=== PATIENT | female | born 1960 | race Caucasian/White ===

== ENCOUNTER 2017-02-18 07:02 | Day surgery (SDC) | payer BC ==
--- NOTE | 2017-02-16 12:21 | CR ---
Chest: PA view of the chest was obtained. Comparison: No prior chest x-ray. Heart size and mediastinum are normal. Lungs are clear. Bony structures are grossly intact. Minimal scoliosis is incidentally noted. Impression: 1. Nothing acute is identified on frontal chest x-ray. Diagnostic code #2
[~2017-02-18 07:02] MED LIST: Lactated Ringers 1,000 ML IV SCH; Lidocaine 1%/Sod Bicarbonate in NS 8.4% 1 ML Syringe IV PRN; Sodium Chloride 0.9% 10 ML Syringe FLUSH PRN
[2017-02-18] MEDS ORDERED: fentaNYL 250 MCG/5 ML SDV ONE (07:18)
[2017-02-18] MEDS ORDERED: Midazolam 1 MG/ML 2 ML SDV ONE (07:18)
[2017-02-18] MEDS ORDERED: Propofol 200 MG/20 ML SDV ONE ×3 (07:18→08:17)
[2017-02-18] MEDS ORDERED: Lidocaine 1% 4 ML ONE (07:19)
[2017-02-18] MEDS ORDERED: Dexamethasone 4 MG/ML SDV ONE (07:19)
[2017-02-18] MEDS ORDERED: Ondansetron 4 MG/2 ML SDV ONE (07:19)
[2017-02-18] MEDS ORDERED: Ketorolac 30 MG/ML SDV ONE (07:19)
[2017-02-18] MEDS ORDERED: Scopolamine 1 MG Transdermal Patch TRDERM ONE (07:35)
--- NOTE | 2017-02-18 07:35 | PCM.PREANE ---
Preanesthetic Assessment - Procedure Proposed Procedure: D&C hysteroscopy - Anesthesia/Transfusion/Family Hx Anesthesia History: Prior Anesthesia Without Reaction Type of Anesthesia Reaction: Excessive Nausea/Vomiting Family History of Anesthesia Reaction: No Transfusion History: No Prior Transfusion(s) - Review of Systems General: No Symptoms Pulmonary: No Symptoms Cardiovascular: Other (HTN ) Gastrointestinal: Other (OCC GERD depnending on diet ) Neurological: No Symptoms Other: Reports: Depression, Anxiety - Physical Assessment NPO Status Date: 02/17/17 NPO Status Time: 18:00 O2 Sat by Pulse Oximetry: 98 Respiratory Rate: 16 Vital Signs: Last Vital Signs Temp 37.0 C 02/18/17 07:10 Pulse 71 02/18/17 07:10 Resp 16 02/18/17 07:10 BP 122/65 02/18/17 07:10 Pulse Ox 98 02/18/17 07:10 Height: 1.75 m Weight: 82.1 kg ASA Class: 2 Mental Status: Alert & Oriented x3 Airway Class: Mallampati = 2 Dentition: Reports: Normal Dentition Thyro-Mental Finger Breadths: 3 Mouth Opening Finger Breadths: 3 ROM/Head Extension: Full Lungs: Clear to Auscultation, Normal Respiratory Effort Cardiovascular: Regular Rate, Regular Rhythm - Lab Values: Laboratory Last Values HCG, Quant < 1.0 mIU/mL 02/16/17 10:51 - Allergies Allergies/Adverse Reactions: Allergies Allergy/AdvReac Type Severity Reaction Status Date / Time No Known Allergies Allergy Verified 02/17/17 15:09 - Blood Blood Available: No Product(s) Available: None - Anesthesia Plan Pre-Op Medication Ordered: None - Acknowledgements Anesthesia Type Planned: General Anesthesia (LMA) Pt an Appropriate Candidate for the Planned Anesthesia: Yes Alternatives and Risks of Anesthesia Discussed w Pt/Guardian: Yes Pt/Guardian Understands and Agrees with Anesthesia Plan: Yes PreAnesthesia Questionnaire HEENT History: Reports: Other (See Below) Other HEENT History: post nasal drip Respiratory History: Reports: Other (See Below) Other Respiratory History: chronic cough Gastrointestinal History: Reports: GERD 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) Other OB/BYN History: cervical polyp, pelvic pain Musculoskeletal History: Reports: None Neurological History: Reports: None Psychiatric History: Reports: Anxiety Endocrine/Metabolic History: Reports: None Hematologic History: Reports: None Immunologic History: Reports: None Oncologic (Cancer) History: Reports: None Dermatologic History: Reports: None - Past Surgical History Head Surgeries/Procedures: Reports: None Cardiovascular Surgical History: Reports: Varicose, Other (See Below) Other Cardiovascular Surgeries/Procedures: varicose vein ligation Respiratory Surgical History: Reports: None GI Surgical History: Reports: Colonoscopy Female Surgical History: Reports: Breast Implant, Section Male Surgical History: Reports: None Endocrine Surgical History: Reports: None Neurological Surgical History: Reports: None Musculoskeletal Surgical History: Reports: None Dermatological Surgical History: Reports: None - SUBSTANCE USE Smoking Status *Q: Former Smoker Second Hand Smoke Exposure: No Days Per Week of Alcohol Use: 0 Number of Drinks Per Day: 0 Total Drinks Per Week: 0 Recreational Drug Use History: No - HOME MEDS Home Medications: Home Meds Escitalopram [Lexapro] 10 mg PO DAILY 02/17/17 [History] Metoprolol Succinate 25 mg PO DAILY 02/17/17 [History] Zolpidem [Ambien] 10 - 20 mg PO BEDTIME PRN 02/17/17 [History] - CURRENT (IN HOUSE) MEDS Current Meds: Current Medications Lactated Ringer's (Ringers, Lactated) 1,000 mls @ 125 mls/hr IV ASDIRECTED KARIS Lidocaine/Sodium Bicarbonate (Buffered Lidocaine 1% In Ns 8.4%) 0.25 ml IV ONETIME PRN PRN Reason: Prior to IV Start Sodium Chloride (Saline Flush) 10 ml FLUSH ASDIRECTED PRN PRN Reason: Keep Vein Open Discontinued Medications Dexamethasone (Dexamethasone) Confirm Administered Dose 4 mg .ROUTE .STK-MED ONE Stop: 02/18/17 07:20 Fentanyl (Sublimaze) Confirm Administered Dose 250 mcg .ROUTE .STK-MED ONE Stop: 02/18/17 07:19 Lidocaine HCl (Xylocaine-Mpf 1%) Confirm Administered Dose 4 mls @ as directed .ROUTE .STK-MED ONE Stop: 02/18/17 07:20 Ketorolac Tromethamine (Toradol) Confirm Administered Dose 30 mg .ROUTE .STK- MED ONE Stop: 02/18/17 07:20 Midazolam HCl (Versed 1 Mg/Ml) Confirm Administered Dose 2 mg .ROUTE .STK-MED ONE Stop: 02/18/17 07:19 Ondansetron HCl (Zofran) Confirm Administered Dose 4 mg .ROUTE .STK-MED ONE Stop: 02/18/17 07:20 Propofol (Diprivan 20 Ml) Confirm Administered Dose 200 mg .ROUTE .STK-MED ONE Stop: 02/18/17 07:19
[2017-02-18] MEDS ORDERED: ceFAZolin 1 GM Vial ONE (07:46)
--- NOTE | 2017-02-18 08:29 | PCM.OPNOTE ---
- General Post-Op/Procedure Note Date of Surgery/Procedure: 02/18/17 Operative Procedure(s): Hysteroscopy dilatation and curettage polypectomy 77647 Pre Op Diagnosis: Endocervical polyp, pelvic pain female, abnormal ultrasound of the endometrium with thickened endometrium 7.2 mm greater than 50 years of age Post-Op Diagnosis: Same the endometrium was not thickened visually it was atrophic endometrium. Anesthesia Technique: General LMA Primary Surgeon: Paco Guadalupe Anesthesia Provider: Irwin Partida Fluid Replacement, Intraop: 1,000 Output, Urine Amount: 10 EBL in mLs: 5 Drain/Tube Comments:: None Complications: None Condition: Good Free Text/Narrative:: Patient was transported to operating room #3 and placed under general anesthesia with laryngeal mask in the dorsal lithotomy position and prepared and draped in a sterile fashion after examination under anesthesia revealed a retroflexed uterus normal size no adnexal masses. SCDs in place and functioning. Patient received 2 g of Ancef preop. Timeout was performed confirming name date of and procedure as D&C polypectomy and hysteroscopy. The polyp was grasped and removed with tonsil snare without difficulty sent separately to pathology. The uterus sounded to 8 cm and carefully dilated to #14 Indonesian to accommodate the hysteroscope. Hysteroscopy was performed no endometrial polyps were seen in the endometrial cavity appeared to be atrophic consistent with her age. Endometrial curetting performed scant tissue obtained all tissue sent to pathology for tissue evaluation. Recent examination of the endometrial cavity with the hysteroscope after curettage showed no polyps again and no active bleeding. Patient was transported postanesthesia care unit in satisfactory condition. Given 1 dose of Toradol 30 mg IV. One set of pictures taken with 6 images: Image 001 the right cornua of the uterus with tubal ostia Image 002 left tubal ostia Image 003 fundus of the endometrial cavity with atrophic endometrium visible Image 004 post curettage right tubal ostia and cornua Image 005 shows the left cornua and area of tubal ostia. Images 006 shows the endometrial cavity with the fundus visible and no active bleeding no polyps seen on any evaluation with the hysteroscope inside the endometrial cavity. Patient has appointment for follow-up in the clinic in 2 weeks' Tylenol and Motrin for pain every 6 hours alternating every 3 hours with Motrin or Tylenol. Pelvic rest for 6 weeks.
--- NOTE | 2017-02-18 08:33 | PCM.POSTAN ---
POST ANESTHESIA ASSESSMENT - MENTAL STATUS Mental Status: Alert, Oriented - VITAL SIGNS Pulse Rate: 60 SaO2: 96 Resp Rate: 11 Blood Pressure: 80/45 Temperature: 36.6 C - RESPIRATORY Respiratory Status: Respiratory Rate WNL, Airway Patent, O2 Saturation Stable, Supplemental Oxygen - CARDIOVASCULAR CV Status: Pulse Rate WNL, Blood Pressure Stable - GASTROINTESTINAL GI Status: No Symptoms - PAIN Pain Score: 0 - POST OP HYDRATION Hydration Status: Adequate & Stable
[2017-02-18] MEDS ORDERED: fentaNYL 100 MCG/2 ML SDV IVPUSH PRN (08:36)
[2017-02-18] MEDS ORDERED: Ondansetron 4 MG/2 ML SDV IVPUSH PRN (08:36)
[2017-02-18] MEDS ORDERED: HYDROmorphone 0.5 MG/0.5 ML Syringe IVPUSH PRN (08:36)
[2017-02-18] MEDS ORDERED: Meperidine PF 50 MG/ML Syringe IVPUSH PRN (08:36)
[2017-02-18] MEDS ORDERED: diphenhydrAMINE 50 MG/ML SDV IVPUSH PRN (08:36)
--- NOTE | 2017-02-18 11:08 | PCM48HPAN ---
Post Anesthesia Note - EVALUATION WITHIN 48HRS OF ANESTHETIC Vital Signs in Normal Range: Yes Patient Participated in Evaluation: No (Pt D/C home, doing well per RN.) Respiratory Function Stable: Yes Airway Patent: Yes Cardiovascular Function Stable: Yes Hydration Status Stable: Yes Pain Control Satisfactory: Yes Nausea and Vomiting Control Satisfactory: Yes Mental Status Recovered: Yes
[2017-02-18 11:20] VITALS: BP 114/68
== END 2017-02-18 09:55 | disposition home or self-care (01) ==
LOC: JD.SDS 07:02
PROVIDERS: ATTEND Obstetrics & Gynecology
DX: N84.1 Polyp of cervix uteri (principal); I10 Essential (primary) hypertension; K21.9 Gastro-esophageal reflux disease without esophagitis; F41.9 Anxiety disorder, unspecified; Z79.899 Other long term (current) drug therapy
CPT/HCPCS: 36415; 58558; 71045; 84702; A9270; J0690; J1100; J1885; J2250; J2405; J3010; J7120; 00952; J2704

== ENCOUNTER 2018-03-29 19:42 | Emergency (ER) | payer BC ==
[2018-03-29 19:58] VITALS: BP 138/76
--- NOTE | 2018-03-29 20:16 | EDM.PDOC ---
ED HPI GENERAL MEDICAL PROBLEM - General Chief Complaint: Respiratory Problem Stated Complaint: COUGH VOMITING Time Seen by Provider: 03/29/18 20:14 Source of Information: Reports: Patient - History of Present Illness INITIAL COMMENTS - FREE TEXT/NARRATIVE: Patient returns to the emergency department today for evaluation of cough for approximately one month. She states that February 24, 2018 she was prescribed Zithromax and prednisone and cough syrup by her PCP. She states that this took care of her cough for approximately one week. She states that it then returned. Patient states that she thought symptoms were improving, today she is coughing harder and reports a very thin, white sputum. She states that it feels like fluid pouring out from her lungs". She does have an albuterol inhaler that she has been using for approximately one month and states that this does not seem to help. She reports that she has the cough through much of the day. Denies fever or chills. Has had persistent sinus congestion and rhinorrhea. She has vomited after coughing quite hard, she has had no nausea or really felt sick. Denies any diarrhea. Eating and drinking adequately. She presents to the emergency department tonight because her father told her that "someone just from a cough" and that made her very worried as this has persisted for some time. - Related Data Allergies Allergy/AdvReac Type Severity Reaction Status Date / Time No Known Allergies Allergy Verified 03/29/18 19:50 Home Meds: Home Meds Escitalopram [Lexapro] 10 mg PO DAILY 02/17/17 [History] Metoprolol Succinate 25 mg PO DAILY 02/17/17 [History] Zolpidem [Ambien] 10 - 20 mg PO BEDTIME PRN 02/17/17 [History] Ibuprofen [Motrin] 600 mg PO Q6H #50 tablet 02/18/17 [Rx] Benzonatate [Tessalon Perle] 100 mg PO BID PRN #30 capsule 03/29/18 [Rx] guaiFENesin/Dextromethorphan [Mucinex Dm ER 600-30 mg Tablet] 1 each PO BID PRN 03/29/18 [History] Past Medical History HEENT History: Reports: Impaired Vision, Other (See Below) Other HEENT History: post nasal drip Respiratory History: Reports: Other (See Below) Other Respiratory History: chronic cough Gastrointestinal History: Reports: GERD Genitourinary History: Reports: Urinary Incontinence Other Genitourinary History: difficulty starting stream, feels she has to force urine out. 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: cervical polyp, pelvic pain Musculoskeletal History: Reports: None Neurological History: Reports: None Psychiatric History: Reports: Anxiety Endocrine/Metabolic History: Reports: None Hematologic History: Reports: None Immunologic History: Reports: None Oncologic (Cancer) History: Reports: None Dermatologic History: Reports: None - Past Surgical History Head Surgeries/Procedures: Reports: None HEENT Surgical History: Reports: Oral Surgery Cardiovascular Surgical History: Reports: Varicose, Other (See Below) Other Cardiovascular Surgeries/Procedures: varicose vein ligation Respiratory Surgical History: Reports: None GI Surgical History: Reports: Colonoscopy Female Surgical History: Reports: Breast Implant, Section Endocrine Surgical History: Reports: None Neurological Surgical History: Reports: None Musculoskeletal Surgical History: Reports: None Dermatological Surgical History: Reports: None Social & Family History - Family History Cardiac: Reports: Hypertension Endocrine/Metabolic: Reports: Diabetes, type II - Tobacco Use Smoking Status *Q: Never Smoker Second Hand Smoke Exposure: No - Caffeine Use Caffeine Use: Reports: Coffee - Recreational Drug Use Recreational Drug Use: No ED ROS GENERAL - Review of Systems Review Of Systems: See Below Constitutional: Denies: Fever, Chills, Malaise, Weakness HEENT: Reports: Rhinitis, Sinus Problem. Denies: Throat Pain Respiratory: Reports: Cough, Sputum. Denies: Shortness of Breath, Wheezing, Pleuritic Chest Pain Cardiovascular: Reports: No Symptoms GI/Abdominal: Reports: No Symptoms Skin: Reports: No Symptoms Neurological: Reports: No Symptoms Psychiatric: Reports: No Symptoms ED EXAM, GENERAL - Physical Exam Exam: See Below Exam Limited By: No Limitations General Appearance: Alert, WD/WN, No Apparent Distress Ears: Normal External Exam, Normal Canal, Normal TMs Throat/Mouth: Normal Inspection, Normal Oropharynx, No Airway Compromise Head: Atraumatic, Normocephalic Neck: Normal Inspection, Supple, Non-Tender. No: Lymphadenopathy (L), Lymphadenopathy (R) Respiratory/Chest: No Respiratory Distress, Chest Non-Tender, Wheezing (Mild expiratory wheeze bilaterally.). No: Crackles, Rales, Rhonchi, Accessory Muscle Use, Retractions Cardiovascular: Regular Rate, Rhythm, No Murmur GI/Abdominal: Normal Bowel Sounds, Soft, Non-Tender Neurological: Alert, Oriented Psychiatric: Normal Affect, Normal Mood Course - Vital Signs Last Recorded V/S: Last Vital Signs Temp 97.2 F 03/29/18 19:56 Pulse 81 03/29/18 19:56 Resp 16 03/29/18 19:56 BP 138/76 03/29/18 19:56 Pulse Ox 95 03/29/18 19:56 - Orders/Labs/Meds Orders: Active Orders 24 hr Category Date Time Status CXR [Chest 2V] [CR] Stat Exams 03/29/18 20:14 Taken Labs: Laboratory Tests 03/29/18 03/29/18 Range/Units 20:25 20:25 WBC 7.65 (3.98-10.04) K/mm3 RBC 4.34 (3.98-5.22) M/mm3 Hgb 12.4 (11.2-15.7) gm/L Hct 38.8 (34.1-44.9) % MCV 89.4 (79.4-94.8) fl MCH 28.6 (25.6-32.2) pg MCHC 32.0 L (32.2-35.5) g/dl RDW Std Deviation 42.1 (36.4-46.3) fL Plt Count 276 (182-369) K/mm3 MPV 8.3 L (9.4-12.3) fl Neutrophils % (Manual) 49 (40-60) % Band Neutrophils % 0 (0-10) % Lymphocytes % (Manual) 47 H (20-40) % Atypical Lymphs % 0 % Monocytes % (Manual) 4 (2-10) % Eosinophils % (Manual) 0 L (0.7-5.8) % Basophils % (Manual) 0 L (0.1-1.2) Platelet Estimate Adequate RBC Morph Comment Normal Sodium 141 (136-145) mEq/L Potassium 3.7 (3.5-5.1) mEq/L Chloride 104 (98-107) mEq/L Carbon Dioxide 27 (21-32) mEq/L Anion Gap 13.7 (5-15) BUN 13 (7-18) mg/dL Creatinine 0.8 (0.55-1.02) mg/dL Est Cr Clr Drug Dosing 81.08 mL/min Estimated GFR (MDRD) > 60 (>60) mL/min BUN/Creatinine Ratio 16.3 (14-18) Glucose 105 (74-106) mg/dL Calcium 8.7 (8.5-10.1) mg/dL Total Bilirubin 0.2 (0.2-1.0) mg/dL AST 16 (15-37) U/L ALT 24 (14-59) U/L Alkaline Phosphatase 64 (46-116) U/L C-Reactive Protein 1.4 H* (<1.0) mg/dL Total Protein 6.9 (6.4-8.2) g/dl Albumin 3.4 (3.4-5.0) g/dl Globulin 3.5 gm/dL Albumin/Globulin Ratio 1.0 (1-2) Mycoplasma pneumon IgM Negative (NEGATIVE) - Re-Assessments/Exams Free Text/Narrative Re-Assessment/Exam: Mild expiratory wheeze. Chest x-ray unremarkable, official radiology report is pending. WBC 7650 with 49% neutrophils and no bands. CRP 1.4. Mycoplasma negative. I see no indication for antibiotic treatment. Recommend the patient continue with saline sinus rinse 1-2 times daily. She may continue to use the cough syrup that she has. He is her albuterol inhaler every 4-6 hours as needed. Will prescribe Tessalon Perles. She will also continue with rest/fluids. She 'll follow-up with her primary provider if symptoms persist, return to the emergency room for any new or worsening symptoms. 03/29/18 21:42 03/29/18 21:44 Departure - Departure Time of Disposition: 21:29 Disposition: Home, Self-Care 01 Condition: Good Clinical Impression: Cough - Discharge Information Prescriptions: Benzonatate [Tessalon Perle] 100 mg PO BID PRN #30 capsule PRN Reason: Cough Instructions: Cough, Adult, [id number] Referrals: Can Ordoñez MD [Primary Care Provider] - Forms: ED Department Discharge Additional Instructions: You were evaluated here in the emergency department for a persistent cough. Your blood work demonstrated no sign of infection, your chest x-ray was normal. I recommend you continue with the saline sinus irrigation, rest, fluids. You may take the cough syrup that your PCP recommended. I sent Tingsalfrederic Pantoja to pharmacy to help with your cough. Follow-up with her primary provider if symptoms persist, return to the emergency room for any new or worsening symptoms. - My Orders Last 24 Hours: My Active Orders 03/29/18 20:14 CXR [Chest 2V] [CR] Stat - Assessment/Plan Last 24 Hours: My Active Orders 03/29/18 20:14 CXR [Chest 2V] [CR] Stat
--- NOTE | 2018-03-30 06:49 | CR ---
Chest: Two views of the chest were obtained. Comparison: Prior chest x-ray of 02/16/17. Heart size and mediastinum are normal. Lungs are clear. Bony structures are unremarkable. Impression: 1. Nothing acute is seen on two-view chest x-ray. Diagnostic code #1
== END 2018-03-29 21:40 | disposition home or self-care (01) ==
LOC: JD.ED 19:42
DX: R05 Cough (principal); K21.9 Gastro-esophageal reflux disease without esophagitis; Z79.899 Other long term (current) drug therapy
CPT/HCPCS: 36415; 71046; 71046-26; 80053; 85007; 85027; 86140; 86738; 99283